=== PATIENT | female | born 1985 | race Caucasian/White ===

== ENCOUNTER 2021-05-23 03:07 | Emergency (ER) | payer BC, OTHER ==
[~2021-05-23] VITALS: Ht 157.5 cm; Wt 72.6 kg
--- NOTE | 2021-05-23 03:40 | NUR ---
PT BIBS C/O SHARP MID ABDOMINAL PAIN X1 MONTH -VOMITTING +NAUSEA/DIARRHEA. PT ALERT AND ORIENTED X4. AMBULATORY WITH NON LABORED BREATHING.
[2021-05-23] MEDS ORDERED: LIDOCAINE VISCOUS 2% UD 15 ML UDC ONE (03:57)
[2021-05-23] MEDS: LIDOCAINE VISCOUS 2% UD 15 ML UDC MM ONE (03:58)
[2021-05-23] MEDS ORDERED: MAG HYDROX/AL HYDROX/SIMETH 30 ML UDC ONE (03:58)
[2021-05-23] MEDS: MAG HYDROX/AL HYDROX/SIMETH 30 ML UDC PO ONE (03:58)
[2021-05-23] MEDS ORDERED: ONDANSETRON HCL/PF 4 MG/2 ML VIAL ONE (04:25)
[2021-05-23] MEDS ORDERED: MORPHINE SULFATE INJ 4 MG/ML DISP.SYRIN ONE (04:26)
--- NOTE | 2021-05-23 04:29 | NUR ---
US TECH AT BED SIDE
[2021-05-23 04:30] LABS: BASOPHILS % (AUTO) 0.8 % (0.0-2.0); EOSINOPHILS % (AUTO) 2.7 % (0.0-6.0); HEMATOCRIT 45 % (33-45); HEMOGLOBIN 15.2 g/dL (11.5-14.8); LYMPHOCYTES # (AUTO) 1.6 K/uL (0.8-4.8); LYMPHOCYTES % (AUTO) 29.2 % (20.0-44.0); MEAN CORPUSCULAR HGB CONC 34 g/dl (31.0-36.0); MEAN CORPUSCULAR VOLUME 87 fL (82-100); MONOCYTES # (AUTO) 0.8 K/uL (0.1-1.30); MONOCYTES % (AUTO) 14.3 % (2.0-12.0); NEUTROPHILS # (AUTO) 2.8 K/uL (1.8-8.9); PLATELET COUNT (AUTO) 340 K/uL (150-450); RED BLOOD CELL COUNT(AUTO) 5.23 MIL/uL (4.0-5.2); WHITE BLOOD COUNT (AUTO) 5.4 K/uL (4.3-11.0)
[2021-05-23] MEDS: ONDANSETRON HCL/PF 4 MG/2 ML VIAL IVP ONE (04:30)
[2021-05-23] MEDS: MORPHINE SULFATE INJ 2 MG/ML DISP.SYRIN IV ONE (04:34)
[2021-05-23] MEDS: IV NS 0.9% 500 ML BAG IV ONE (04:35)
[2021-05-23] MEDS ORDERED: PANT40TA2 PO (04:41)
[2021-05-23 04:55] LABS: ALANINE AMINOTRANSFERASE 27 U/L (12-78); ALKALINE PHOSPHATASE 44 U/L (46-116); ASPARTATE AMINOTRANSFERASE 16 U/L (15-37); BILIRUBIN,DIRECT 0.1 mg/dL (0.0-0.2); BILIRUBIN,TOTAL 0.2 mg/dL (0.2-1.0); CARBON DIOXIDE 30 mmol/L (21-32); CHLORIDE 102 mmol/L (98-107); CREATININE 0.9 mg/dL (0.6-1.3); GLUCOSE 104 mg/dL (74-106); LIPASE 186 U/L (73-393); POTASSIUM 3.8 mmol/L (3.5-5.1); SODIUM SERUM 140 mmol/L (136-145); TOTAL PROTEIN, SERUM 8.1 g/dL (6.4-8.2); UREA NITROGEN, BLOOD 14 mg/dL (7-18)
[2021-05-23 05:35] VITALS: BP 158/98
[2021-05-23 05:42] LABS: ALBUMIN 3.6 g/dL (3.4-5.0)
== END 2021-05-23 05:39 | disposition home or self-care (01) ==
LOC: ER 03:13
DX: R10.13 Epigastric pain (principal); Z87.440 Personal history of urinary (tract) infections; Z79.899 Other long term (current) drug therapy
CPT/HCPCS: 36415; 76705; 80048; 80076; 83690; 84484; 85025; 85730; 93005; 96361; 96374; 96375; 99285; J2270; J2405; J7030